=== PATIENT | male | born 1960 | race Caucasian/White ===

== ENCOUNTER 2017-03-23 16:48 | Emergency (ER) | payer MEDICAID ==
[~2017-03-23] VITALS: Ht 177.8 cm; Wt 99.8 kg
[~2017-03-23 16:48] MED LIST: ASPIRIN ADULT L81 M2 PO; NAPROSYN 500MG500 MG PO
--- OUTSIDE RECORDS SUMMARY | 2017-03-23 16:57 | External Medical Summary Rpt | CCD ---
Demographics Preferred Language Burundian Marital Status Unknown Denominational Affiliation Unknown Race Unknown Ethnic Group Unknown Author Author , NICOLAS VALENZUELA Address Unknown Phone Immunization No patient found.
--- OUTSIDE RECORDS SUMMARY | 2017-03-23 16:57 | External Medical Summary Rpt ---
Author Author NICOLAS Blackwell, [employer] Organization [employer] Address Unknown Phone Unavailable
--- OUTSIDE RECORDS SUMMARY | 2017-03-23 16:57 | External Medical Summary Rpt | CCD ---
Author Author , NICOLAS VALENZUELA Address Unknown Phone [email or web address] Care Team Providers Care Radiology Asst Name Role Phone CHICO HAYWOOD Unavailable Unavailable XOCHITL CHICO HAYWOOD Unavailable Unavailable XOCHITL YNES YAMILETH, Unavailable Unavailable YNES YAMILETH DOREEN FUNEZ Unavailable Unavailable [facility] Unavailable Unavailable [facility] Purpose Continuity of Care Document - 12-04-2013 through 2016 Problems Code Diagnosis DOS Provider Status [id number] ACUTE 03-26-2016 CHICO LEUNG SINUSITIS UNSPECIFIED 16536 OSTEOARTHRO 12-04-2013 [facility] UNSPEC MEDICAL GEN/LOC IMAGING ASS PELV REGION&THIG H [address] PAIN IN 12-04-2013 [facility] JOINT [facility] PELVIC IMAGING ASS REGION AND THIGH Procedures Procedure DOS Code Location Performer Comment RADEX HIP [address] [facility] 4 MEDICAL YAMILETH UNILATERA IMAGING L ASS COMPLETE MINIMUM 2 VIEWS Encounters Encounter Start End Date Code Location Performer Type Date OFFICE 78275 [facility] 6 6 XOCHITL XOCHITL T NEW 30 MINUTES EMERGENCY 66672 D[facility]EN [facility] 4 4 [facility]URGE NT SEVERITY
--- OUTSIDE RECORDS SUMMARY | 2017-03-23 16:57 | External Medical Summary Rpt | CCD ---
Author Author , NICOLAS VALENZUELA Address Unknown Phone [email or web address] Care Team Providers Care Animal Control Supervisor Name Role Phone CHICO HAYWOOD Unavailable Unavailable XOCHITL CHICO HAYWOOD Unavailable Unavailable XOCHITL YNES YAMILETH, Unavailable Unavailable YNES YAMILETH DOREEN FUNEZ Unavailable Unavailable [facility] Unavailable Unavailable [facility] Purpose Continuity of Care Document - 12-04-2013 through 2016 Problems Code Diagnosis DOS Provider Status [id number] ACUTE 03-26-2016 CHICO LEUNG SINUSITIS UNSPECIFIED 43738 OSTEOARTHRO 12-04-2013 [place] [facility] UNSPEC MEDICAL GEN/LOC IMAGING ASS PELV REGION&THIG H [address]32 PAIN IN 12-04-2013 [place] JOINT MEDICAL PELVIC IMAGING ASS REGION AND THIGH Procedures Procedure DOS Code Location Performer Comment RADEX HIP [address] [facility] 4 MEDICAL YAMILETH UNILATERA IMAGING L ASS COMPLETE MINIMUM 2 VIEWS Encounters Encounter Start End Date Code Location Performer Type Date OFFICE 36004 [facility] 6 6 XOCHITL XOCHITL T NEW 30 MINUTES EMERGENCY 06430 DOREEN LOGAN 4 4 [facility] H[facility]/URGE NT SEVERITY
--- OUTSIDE RECORDS SUMMARY | 2017-03-23 16:57 | External Medical Summary Rpt | CCD ---
Author Author , NICOLAS Organization [employer] Address Unknown Phone Care Team Providers Care Promotions Producer Name Role Phone CHICO HAYWOOD Unavailable Unavailable XOCHITL CHICO HAYWOOD Unavailable Unavailable XOCHITL YNES YAMILETH, Unavailable Unavailable YNES YAMILETH DOREEN FUNEZ Unavailable Unavailable [facility]ENE [facility] Unavailable Unavailable [facility], [facility] Purpose Continuity of Care Document - 12-04-2013 through 2016 Problems Code Diagnosis DOS Provider Status [id number] ACUTE 03-26-2016 CHICO LEUNG SINUSITIS UNSPECIFIED 56122 OSTEOARTHRO 12-04-2013 [place] [facility] UNSPEC MEDICAL GEN/LOC IMAGING ASS PELV REGION&THIG H 66989 PAIN IN 12-04-2013 [place] JOINT MEDICAL PELVIC IMAGING ASS REGION AND THIGH Procedures Procedure DOS Code Location Performer Comment RADEX HIP [address] [facility] 4 MEDICAL YAMILETH UNILATERA IMAGING L ASS COMPLETE MINIMUM 2 VIEWS Encounters Encounter Start End Date Code Location Performer Type Date OFFICE 56158 [facility] 6 6 XOCHITL XOCHITL T NEW 30 MINUTES EMERGENCY 63626 DOREEN LOGAN 4 4 [facility]/URGE NT SEVERITY
--- OUTSIDE RECORDS SUMMARY | 2017-03-23 16:57 | External Medical Summary Rpt | CCD ---
Author Author , NICOLAS Organization [employer] Address Unknown Phone Care Team Providers Care Manager Of Photography Name Role Phone CHICO HAYWOOD Unavailable Unavailable XOCHITL CHICO HAYWOOD Unavailable Unavailable XOHCITL YNES YAMILETH, Unavailable Unavailable YNES YAMILETH DOREEN FUNEZ Unavailable Unavailable [facility] Unavailable Unavailable [facility], [facility] Purpose Continuity of Care Document - 12-04-2013 through 2016 Problems Code Diagnosis DOS Provider Status [id number] ACUTE 03-26-2016 CHICO LEUNG SINUSITIS UNSPECIFIED 51529 OSTEOARTHRO 12-04-2013 [place] S UNSPEC MEDICAL GEN/LOC IMAGING ASS PELV REGION&THIG H [address]67 PAIN IN 12-04-2013 [place] JOINT MEDICAL PELVIC IMAGING ASS REGION AND THIGH Procedures Procedure DOS Code Location Performer Comment RADEX HIP [address] [facility] 4 MEDICAL YAMILETH UNILATERA IMAGING L ASS COMPLETE MINIMUM 2 VIEWS Encounters Encounter Start End Date Code Location Performer Type Date OFFICE 59397 [facility] 6 6 XOCHITL XOCHITL T NEW 30 MINUTES EMERGENCY 98005 [facility]OREEN [facility] 4 [facility]URGE NT SEVERITY
--- OUTSIDE RECORDS SUMMARY | 2017-03-23 16:57 | External Medical Summary Rpt | CCD ---
Demographics Preferred Language Liberian Marital Status Unknown Worship Affiliation Unknown Race Unknown Ethnic Group Unknown Author Author , NICOLAS VALENZUELA Address Unknown Phone Immunization No patient found.
--- NOTE | 2017-03-23 17:15 | Urgent Treatment Center Report ---
History of Present Issue Date/Time Seen by Provider 03/23/17 1705 Visit Reason Pt arrived:Walked Presenting Problem:PT C/O CHRONIC LEFT HIP AND BACK PAIN. Location if Accident: Onset of symptoms date/time:03/20/17 or onset unknown for: Have you (or family members/close friends) recently traveled outside the [place]? N If Yes, where/when: Have you had exposure to infectious disease within the past month? TB? Other? Specify: Patient state that he is having pain in his lower back area State that he has had chronic back pain State that pain radiates down from his lower back area down through buttocks into his left hip and leg States that he has had this pain before and it went away when he took Ibuprofen but this time it has not helped State that pain is worse when he tries to lift his leg ALLERGIES Coded Allergies: No Known Allergies (03/23/17) Home Medications Active Scripts NAPROXEN (NAPROSYN 500MG TAB) 500 MG PO BID #30 TAB Ref 2 Prov: 12/04/13 Reported Medications Aspirin 81 MG PO DAILY History Medical History General CAD? No Angina: No FL: No Hypertension? No Hyperlipidemia? No CHF? No DVT? No PE? No COPD? No Asthma? No Anemia? No GERD? No Gastric ulcers? No GI Bleed? No Hernia? No Thyroid Problems? No Hypothyroidism? No CVA? No Seizures? No Diabetes? No Renal Insuffiency? No UTI? No Stones? No BPH? No GB Disease: No Nephritic Syndrome? No Asplenia? No Hepatitis? No Sickle Cell Disease? No Arthritis? No Migraines? No Cataracts? No Glaucoma? No MRSA? No HIV? No TB? No Anxiety? No Depression? No Cancer? No More? No Immunization HX DT/Tetanus > 10 Years Ago Surgical Hx Previous Surgery?Y R SHOULDER REPAIR HERNIA REPAIR Family History Family HX Diabetes No CAD No Hypertension No Hyperlipidemia No Cancer No TB No Social History Smoking Hx Smoker: Current Every Day Smoker Tobacco: Yes Type Cigarettes Packs/day 1 1/2 - 2 Packs Alcohol Alcohol: No Review of Systems All Other Systems Reviewed and Negative Musculoskeletal back pain Physical Exam Vital Signs Vital Signs Date Time Temp Pulse Resp B/P Pulse O2 O2 Flow FiO2 Ox Delivery Rate 03/23 1726 20 03/23 1658 98.7 104 20 188/80 95 General Appearance normal appearance, WD/WN, no apparent distress Respiratory Status Yes: trachea midline, chest symmetrical, non tender chest. No: respiratory distress. Lung Sounds bilateral: normal breath sounds, lungs clear. Cardiovascular normal exam, regular rate/rhythm Back normal inspection, no CVA tenderness, Lower back pain that radiates down into buttock area and left hip describes it as an achy like pain like that associated with sciatica Neurologic alert, normal exam, oriented x 3 Medical Decision Making LABS/Meds/Orders Pt receiving controlled substance in ED? No Results/Orders Laboratory Tests 03/23/17 1651: Urine Color Cancelled, Urine Appearance Cancelled, Urine pH Cancelled, Ur Specific [place] Cancelled Current Medication Orders Sig/Yesenia Start time Last Medication Dose Route Stop Time Status Admin Ketorolac 60 MG ONCE ONE 03/23 1715 DC 03/23 Tromethamine IM 03/23 1716 1726 Methylprednisolone 125 MG ONCE ONE 03/235 DC 03/23 Sodium Succinate IM 03/23 1716 1724 Methylprednisolone 0 .STK-MED ONE 03/23 1713 DC Sodium Succinate .ROUTE Ketorolac 0 .STK-MED ONE 03/23 171 DC Tromethamine .ROUTE Progress [facility] Progress Notes Comment Patient state that medication helped some with pain Departure Departure Disposition DC Home or Self Care(routine) Clinical Impression Primary Impression: Back pain with sciatica Condition STABLE Referrals NO REFERRAL (Family) Patient Instructions DI for Back Pain With Sciatica, DI for Sciatica Additional Instructions Follow up with family doctor Return if needed Ibuprofen will help with the pain Discharge Counseling Counseled pt/family regarding diagnosis, medications/RX, home care, follow up needs Prescriptions Current Visit Scripts Cyclobenzaprine Hcl (Flexeril) 10 MG PO TID #15 TAB Ibuprofen (Ibuprofen 800MG) 800 MG PO QIDP PRN pain #30 TAB at 3619
[2017-03-23] MEDS ORDERED: IBUPROFEN800 MG PO (17:41)
[2017-03-23] MEDS ORDERED: FLEXERIL10 MG PO (17:41)
[2017-03-23 17:44] VITALS: BP 188/80
== END 2017-03-23 17:47 | disposition home or self-care (01) ==
LOC: UTC 16:48
DX: M54.42 Lumbago with sciatica, left side (principal); F17.210 Nicotine dependence, cigarettes, uncomplicated